=== PATIENT | female | born 1995 | race Caucasian/White ===

== ENCOUNTER 2020-02-14 01:15 | Emergency (ER) | payer OTHER ==
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
[2020-02-14] MEDS ORDERED: IBUPROFEN 200 MG TAB PO ONE (02:23)
[2020-02-14] MEDS ORDERED: IBUPROFEN 400 MG TAB ONE (02:23)
[2020-02-14 03:25] VITALS: BP 121/69; TEMP 98.1; O2SAT 98
--- NOTE | 2020-02-14 08:09 | RAD REPORT ---
EXAM DESCRIPTION: RAD - Knee Left 3 View - 02/14/2020 3:08 am CLINICAL HISTORY: knee injury COMPARISON: No comparisons FINDINGS: No fracture, dislocation or periosteal reaction.No joint effusion seen. No joint space jas rowing. No soft tissue abnormality. IMPRESSION: Negative left knee. Clinical concerns for internal derangement or occult bony injury could be further assessed with MR servando arciniega.
== END 2020-02-14 03:11 | disposition home or self-care (01) ==
LOC: ER 01:15
DX: S86.912A Strain of unspecified muscle(s) and tendon(s) at lower leg level, left leg, initial encounter (principal); X58.XXXA Exposure to other specified factors, initial encounter; Y93.89 Activity, other specified; Y92.89 Other specified places as the place of occurrence of the external cause; Z88.0 Allergy status to penicillin
CPT/HCPCS: 99284